=== PATIENT | male | born 1980 | race Caucasian/White ===

== ENCOUNTER 2016-08-20 20:32 | Emergency (ER) | payer OTHER ==
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
[2016-08-20 20:43] LABS: Glucose,Whole Blood 117 mg/dL (75-99)
[2016-08-20 20:55] LABS: Basophils % (A) 1 %; CH 32.2; CHCM 33.7; Eosinophils # (A) 0.2 k/uL (0-0.7); Eosinophils % (A) 2 %; HCT 35.5 % (39.0-53.0); HDW 2.27; HGB 11.8 gm/dL (13.0-17.5); Luc # (Auto) 0.24; Luc % (Auto) 3; Lymphocytes % (A) 41 %; MCH 31.8 pg (25.0-35.0); MCHC 33.1 g/dL (31.0-37.0); MCV 96.1 fL (80.0-100.0); Mean Platelet Volume 8.3; Monocytes # (A) 0.3 k/uL (0-1.0); Monocytes % (A) 5 %; Neutrophils # (A) 3.6 k/uL (1.3-7.7); Neutrophils % (A) 49 %; RDW 13.3 % (11.5-15.5); WBC 7.4 k/uL (3.8-10.6); WBC (Perox) 7.31
[2016-08-20] MEDS ORDERED: RX INFO: IV CONTRAST WAS GIVEN 1 EACH MISC MISCELLANE PRN (20:55)
[2016-08-20] MEDS ORDERED: HYDROmorphone 1 MG/ML 1 ML SYRINGE IVP STA ×2 (20:55→21:45)
[2016-08-20 20:59] LABS: INR 1.1 (<1.1)
[2016-08-20 21:01] LABS: ALT 40 U/L (21-72); AST 31 U/L (17-59); Alkaline Phosphatase 50 U/L (38-126); Amylase 34 U/L (30-110); Anion Gap 14 mmol/L; Blood Urea Nitrogen 14 mg/dL (9-20); Calcium 7.9 mg/dL (8.4-10.2); Carbon Dioxide 17 mmol/L (22-30); Chloride 109 mmol/L (98-107); Glucose 114 mg/dL (74-99); Non-African American GFR(MDRD) >60 (>60 ml/min/1.73 sqM); Potassium 3.3 mmol/L (3.5-5.1); Sodium 140 mmol/L (137-145); Total Bilirubin 0.6 mg/dL (0.2-1.3); Total Protein 6.3 g/dL (6.3-8.2)
--- NOTE | 2016-08-20 21:03 | XR ---
EXAMINATION TYPE: XR pelvis AP view DATE OF EXAM: 08/20/2016 CLINICAL HISTORY: Trauma with pain. TECHNIQUE: A single AP view of the pelvis is obtained. COMPARISON: None. FINDINGS: There is no acute fracture/dislocation evident in the pelvis. The hip and sacroiliac join ts appear symmetric and unremarkable. Sclerotic foci left proximal femur are presumed benign, probabl e bone islands. The overlying soft tissue appears unremarkable. IMPRESSION: There is no acute fracture or dislocation in the pelvis.
--- NOTE | 2016-08-20 21:05 | XR ---
EXAMINATION TYPE: XR knee limited RT DATE OF EXAM: 08/20/2016 CLINICAL HISTORY: Amputation injury with pain TECHNIQUE: Limited portable frontal view of the right knee is obtained. COMPARISON: None. FINDINGS: There is soft tissue punctate foreign body medially and laterally at level of right knee j oint extending but less prominent up to distal diaphyseal level. Subcutaneous air consistent with ope n injury is noted. There is acute comminuted open fracture deformity or amputation at the proximal me tadiaphysis of right tibia. Fibula appears completely amputated as is not visualized. Visualized port ion of distal femur is intact without fracture. Overlying belt or constricting bandage material dista l femoral level is noted. IMPRESSION: There is open fracture amputation defect at level of proximal tibial metadiaphysis with complete amputation or expulsion of the fibula. Soft tissue foreign body noted.
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
[2016-08-20 21:11] LABS: Alcohol 172 mg/dL
[2016-08-20 21:17] LABS: Creatine Kinase 229 U/L (55-170)
[2016-08-20 21:18] LABS: Partial Thromboplastin Time 19.4 sec (22.0-30.0)
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
[2016-08-20 21:30] LABS: Troponin I <0.012 ng/mL (0.000-0.034)
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
[2016-08-20] MEDS ORDERED: ONDANSETRON 4 MG/2 ML VIAL IVP STA ×2 (21:45)
[2016-08-20] MEDS ORDERED: ceFAZolin 1,000 MG in DEXTROSE/WATER 1 50ML.BAG IVPB STA (21:45)
[2016-08-20 22:19] VITALS: BP 86/59; PULSE 72; RESP 18; TEMP 97.8
[2016-08-20] MEDS ORDERED: SODIUM CHLORIDE 0.9% 1,000 ML IV ONE (22:22)
[2016-08-20] MEDS ORDERED: SODIUM CHLORIDE 0.9% 500 ML IV ONE (22:26)
== END 2016-08-20 21:58 | disposition short-term general hospital (02) ==
LOC: EC 20:32
DX: S88.011A Complete traumatic amputation at knee level, right lower leg, initial encounter (principal); F17.200 Nicotine dependence, unspecified, uncomplicated; V27.4XXA Motorcycle driver injured in collision with fixed or stationary object in traffic accident, initial encounter; Y92.410 Unspecified street and highway as the place of occurrence of the external cause
CPT/HCPCS: 99291; 96374; 96375 ×2; 96376; 36415; 86900; 86901; 80053; 82150; 82550; 82553; 83605; 83690; 84484; 85025; 85610; 85730; 86850; 86920; 80320; 71010; 72170; 73560; 72125; 70450; 71260; 74177; J2405; J1170; Q9967; J0690; 93005

== ENCOUNTER 2020-01-05 13:06 | Emergency (ER) | payer OTHER ==
[2020-01-05 13:13] VITALS: RESP 18
[2020-01-05] MEDS ORDERED: FLUORESCEIN STRIPS 1 MG STRIP RIGHT EYE ONE (13:21)
[2020-01-05] MEDS ORDERED: PROPARACAINE 0.5% OPHTH DROPS 15 ML BTL LEFT EYE STA (13:21)
[2020-01-05] MEDS ORDERED: PROPARACAINE 0.5% OPHTH DROPS 15 ML BTL ONE (13:22)
[2020-01-05] MEDS ORDERED: TOBRAMYCIN 0.3% OPHTH DROPS 5 ML BTL LEFT EYE STA (13:30)
--- NOTE | 2020-01-05 13:31 | ED ---
Eye Problem HPI - General Chief complaint: Eye Problems Stated complaint: Eye Injury Time Seen by Provider: 01/05/20 13:18 Source: patient, RN notes reviewed Mode of arrival: ambulatory Limitations: no limitations - History of Present Illness Initial comments: 39-year-old male presents emergency Department chief complaint of foreign body left eye. His tetanus is up-to-date. Patient states she is cutting some sheet metal or piece went towards his left eye. He states he can see unable to remove it. Patient denies any blurred vision no other complaints. - Related Data Previous Rx's Medication Instructions Recorded Cephalexin [Keflex] 500 mg PO Q12HR 10 Days cap 12/23/15 Ibuprofen [Motrin] 600 mg PO Q6HR PRN #30 day 12/23/15 Allergies Allergy/AdvReac Type Severity Reaction Status Date / Time No Known Allergies Allergy Verified 01/05/20 13:13 Review of Systems ROS Statement: Those systems with pertinent positive or pertinent negative responses have been documented in the HPI. ROS Other: All systems not noted in ROS Statement are negative. Past Medical History Past Medical History: Hypertension History of Any Multi-Drug Resistant Organisms: None Reported Past Surgical History: Orthopedic Surgery Additional Past Surgical History / Comment(s): leg amputation Past Psychological History: No Psychological Hx Reported Smoking Status: Current every day smoker Past Alcohol Use History: Occasional Past Drug Use History: None Reported General Exam Limitations: no limitations General appearance: alert, in no apparent distress Head exam: Present: atraumatic, normocephalic, normal inspection Eye exam: Present: PERRL, EOMI, conjunctival injection (Left), other (Fluorescein uptake noted in central cornea region were foreign bodies noted no other areas of uptake, patient complete relief of symptoms with proparacaine.). Absent: normal appearance (Foreign body noted in the central corneal region), scleral icterus, periorbital swelling ENT exam: Present: normal exam, mucous membranes moist Neck exam: Present: normal inspection. Absent: tenderness, meningismus, lymphadenopathy Respiratory exam: Present: normal lung sounds bilaterally. Absent: respiratory distress, wheezes, rales, rhonchi, stridor Course Vital Signs 01/05/20 13:10 Temperature 98.6 F Pulse Rate 86 Respiratory 18 Rate Blood Pressure 148/81 O2 Sat by Pulse 99 Oximetry Procedures - Forgein Body Removal Eye Site: Left Location in eye(s): Central cornea Anesthetic Used: Proparacaine Eye Exam Technique: Mix Lamp, Fluorescein Foreign Body Suspected: Metal Forgein Body Removal Technique: Cotton Swab Remaining Debris: No Patient Tolerated: no complications Medical Decision Making - Medical Decision Making Patient present for left eye foreign body. This was completely removed with no residual areas. Patient was discharged on Tobrex eyedrops will follow-up with ophthalmology tetanus is up-to-date. Disposition Clinical Impression: Foreign body of left eye Disposition: HOME SELF-CARE Condition: Stable Instructions (If sedation given, give patient instructions): Eye Foreign Body (ED) Additional Instructions: Please return to the Emergency Department if symptoms worsen or any other concerns. Use Tobrex eyedrops 1 drop to her left eye every 4 hours for 5 days. Is patient prescribed a controlled substance at d/c from ED?: No Referrals: Emiliano Vila Jr, DO [Primary Care Provider] - 1-2 days Vidya Haines MD [STAFF PHYSICIAN] - 1-2 days Time of Disposition: 13:31
[2020-01-05 14:16] VITALS: BP 145/79; PULSE 82; TEMP 98.1
== END 2020-01-05 14:15 | disposition home or self-care (01) ==
LOC: EC 13:06
DX: T15.02XA Foreign body in cornea, left eye, initial encounter (principal); F17.200 Nicotine dependence, unspecified, uncomplicated; X58.XXXA Exposure to other specified factors, initial encounter
CPT/HCPCS: 65220; 99283

== ENCOUNTER 2024-05-29 22:51 | Emergency (ER) | payer OTHER ==
[2024-05-29 23:06] VITALS: RESP 18
[2024-05-30] MEDS: FLUORESCEIN STRIPS 1 MG STRIP LEFT EYE ONE (00:19)
[2024-05-30] MEDS: PROPARACAINE 0.5% OPHTH DROPS 15 ML BTL LEFT EYE STA (00:19)
--- NOTE | 2024-05-30 00:53 | ED ---
Eye Problem HPI - General Chief complaint: Eye Problems Stated complaint: left eye pain Time Seen by Provider: 05/29/24 23:51 Source: patient Mode of arrival: ambulatory Limitations: no limitations - History of Present Illness Initial comments: 43-year-old male presenting with chief complaint of left eye discomfort. Patient reports that he has been doing work with metal recently and thinks that may be a piece of metal stuck in his eye. He admits to foreign body sensation. Also admits to watering of the eyes. He does not wear glasses or contact lens es. He is having some slight blurred vision. No visual loss. No purulent discharge from the eye. - Related Data Previous Rx's Medication Instructions Recorded Cephalexin [Keflex] 500 mg PO Q12HR 10 Days cap 12/23/15 Ibuprofen [Motrin] 600 mg PO Q6HR PRN #30 day 12/23/15 Allergies Allergy/AdvReac Type Severity Reaction Status Date / Time No Known Allergies Allergy Verified 05/29/24 23:06 Review of Systems ROS Statement: Those systems with pertinent positive or pertinent negative responses have been documented in the HPI. ROS Other: All systems not noted in ROS Statement are negative. Past Medical History Past Medical History: Hypertension History of Any Multi-Drug Resistant Organisms: None Reported Past Surgical History: Orthopedic Surgery Additional Past Surgical History / Comment(s): leg amputation Past Psychological History: No Psychological Hx Reported Smoking Status: Current every day smoker Past Alcohol Use History: Occasional Past Drug Use History: None Reported General Exam Limitations: no limitations General appearance: alert, in no apparent distress Head exam: Present: atraumatic, normocephalic, normal inspection Expanded Eyelids: Normal Inspection: Bilateral Pupils: Regular, Round: Bilateral, Reactive: Bilateral Sclera/Conjunctival: Foreign Body: Left (Possible metallic foreign body ) Visual acuity (R) = 20/: 13 Visual acuity (L) = 20/: 20 With correction: No Neck exam: Present: normal inspection. Absent: meningismus Respiratory exam: Absent: respiratory distress Cardiovascular Exam: Present: regular rate Neurological exam: Present: alert, oriented X3 Psychiatric exam: Present: normal affect, normal mood Skin exam: Present: warm, dry, normal color Course Vital Signs 05/29/24 05/30/24 23:03 01:42 Temperature 97.6 F 97.8 F Pulse Rate 91 71 Respiratory 18 18 Rate Blood Pressure 128/82 124/78 O2 Sat by Pulse 96 98 Oximetry Medical Decision Making - Medical Decision Making Was pt. sent in by a medical professional or institution ([facility], [facility] [facility], urgent care, hospital, or shelter...) When possible be specific @ -No Did you speak to anyone other than the patient for history (EMS, parent, family, police, friend...)? What history was obtained from this source @ -No Did you review nursing and triage notes (agree or disagree)? Why? @ -I reviewed and agree with nursing and triage notes Were old charts reviewed (outside hosp., previous admission, EMS record, old EKG, old radiological studies, urgent care reports/EKG's, shelter records)? Report findings @ -No old charts were reviewed Differential Diagnosis (chest pain, altered mental status, abdominal pain women, abdominal pain men, vaginal bleeding, weakness, fever, dyspnea, syncope, h eadache, dizziness, GI bleed, back pain, seizure, CVA, palpatations, mental health, musculoskeletal)? @ -Differential includes foreign body, corneal abrasion, corneal ulcer, conjunctivitis, not an all-inclusive list EKG interpreted by me (3pts min.). @ -As above X-rays interpreted by me (1pt min.). @ -None done CT interpreted by me (1pt min.). @ -None done U/S interpreted by me (1pt. min.). @ -None done What testing was considered but not performed or refused? (CT, X-rays, U/S, labs)? Why? @ -None What meds were considered but not given or refused? Why? @ -None Did you discuss the management of the patient with other professionals (professionals i.e. [facility] Rodriguez, [facility], lab, RT, psych nurse, medical social consultant, fish hatchery supervisor, teacher, chief analytics officer, onsite case manager)? Give summary @ -No Was smoking cessation discussed for >3mins.? @ -No Was critical care preformed (if so, how long)? @ -No Were there social determinants of health that impacted care today? How? (Homelessness, low income, unemployed, alcoholism, drug addiction, transportation, low edu. Level, literacy, decrease access to med. care, prison, rehab)? @ -No Was there de-escalation of care discussed even if they declined (Discuss DNR or withdrawal of care, Hospice)? DNR status @ -No What co-morbidities impacted this encounter? (DM, HTN, Smoking, COPD, CAD, Cancer, CVA, ARF, Chemo, Hep., AIDS, mental health diagnosis, sleep apnea, morbid obesity)? @ -None Was patient admitted / discharged? Hospital course, mention meds given and route, prescriptions, significant lab abnormalities, going to OR and other pertinent info. @ -43-year-old male presenting with chief complaint of left eye irritation. Thinks there may be a foreign body in his eye and thinks it may be metal as he has been doing recent work with metal. On fluorescein examination there is a small area of uptake seen. Unfortunately the slit-lamp is not available at this time. Attempted to remove the foreign body using an 18-gauge needle, believe that I remove the foreign body but there may be a remaining rust ring. Patient was started on erythromycin eye ointment and ketorolac eyedrops. He is instructed to follow-up with ophthalmology. Educated on today's findings and treatment plan. Follow-up with PCP. Report back to ER with any new or worsening symptoms. Discussed return parameters and answered all questions. Patient conveyed verbal understanding and agreed to the plan. I discussed this case in detail with my attending Dr. Chawla Undiagnosed new problem with uncertain prognosis? @ -No Drug Therapy requiring intensive monitoring for toxicity (Heparin, Nitro, Insulin, Cardizem)? @ -No Were any procedures done? @ -Fluorescein staining with Mix lamp examination Diagnosis/symptom? @ -Corneal abrasion, corneal foreign body Acute, or Chronic, or Acute on Chronic? @ -Acute Uncomplicated (without systemic symptoms) or Complicated (systemic symptoms)? @ -Uncomplicated Side effects of treatment? @ -No Exacerbation, Progression, or Severe Exacerbation? @ -No Poses a threat to life or bodily function? How? (Chest pain, [place], [place], pneumonia, PE, COPD, DKA, ARF, appy, cholecystitis, CVA, Diverticulitis, Homicidal, Suicidal, threat to staff... and all critical care pts) @ -Unlikely though there is potential if he does not follow-up with ophthalmology Disposition Clinical Impression: Corneal abrasion Disposition: HOME SELF-CARE Condition: Good Instructions (If sedation given, give patient instructions): Corneal Abrasion (ED), Eye Foreign Body (ED) Additional Instructions: Follow-up with ophthalmology. Report back to ER with any new or worsening symptoms. Apply erythromycin eye ointment to the affected eye 4 times daily for 5 days to prevent infection Apply ketorolac eyedrop to the affected eye 1 drop up to 3 times a day as needed for pain Is patient prescribed a controlled substance at d/c from ED?: No Referrals: Emiliano Vila Jr, DO [Primary Care Provider] - 1-2 days Vidya Haines MD [STAFF PHYSICIAN] - 1-2 days Time of Disposition: 00:53
[2024-05-30] MEDS: KETOROLAC 0.5% OPHTH DROPS 5 ML BTL LEFT EYE STA (01:39)
[2024-05-30] MEDS: ERYTHROMYCIN 5 MG/GM OPHTH OINT 1 GM TUBE LEFT EYE STA (01:39)
[2024-05-30 01:43] VITALS: BP 124/78; PULSE 71; TEMP 97.8
== END 2024-05-30 01:42 | disposition home or self-care (01) ==
LOC: EC 22:51
DX: S05.02XA Injury of conjunctiva and corneal abrasion without foreign body, left eye, initial encounter (principal); F17.200 Nicotine dependence, unspecified, uncomplicated; X18.XXXA Contact with other hot metals, initial encounter
CPT/HCPCS: 99283

== ENCOUNTER → 2024-06-06 | Outpatient (CLI) | payer OTHER ==
--- NOTE | 2024-06-06 10:24 | XR ---
EXAMINATION TYPE: XR lumbar spine 2 or 3V DATE OF EXAM: 06/06/2024 CLINICAL HISTORY: Lumbar pain TECHNIQUE: Three views of the lumbar spine are submitted. COMPARISON: Radiographs 08/20/2016, CT chest abdomen pelvis 08/20/2016 FINDINGS: There are 5 lumbar type vertebral bodies identified. The lumbar spine shows satisfactory alignment w ithout evidence of acute fracture or dislocation. Vertebral body heights are within normal limits. Disc space narrowing with anterior osteophytosis at L4-L5 and L5-S1. Facet arthropathy at L5-S1. The overlying soft tissue appears unremarkable. IMPRESSION: 1. No acute fracture or dislocation is seen in the lumbar spine. 2. Mild degenerative disc disease of the lower lumbar spine. [facility], , 06/06/2024 10:22 AM
--- NOTE | 2024-06-06 12:39 | XR ---
EXAMINATION TYPE: XR cervical spine comp DATE OF EXAM: 06/06/2024 12:16 PM INDICATION: Patient age:Male; 43 years old; Reason for study: M54.2 cervical pain; PHH, pain COMPARISON: CT brain C-spine 08/20/2016 TECHNIQUE: The cervical spine was imaged in 4 projections. Frontal, lateral, odontoid and bilateral o blique. FINDINGS: The osseous structures show normal alignment without evidence of an acute fracture. There is disc spa ce narrowing with anterior osteophytosis at C4-C5, C5-C6, and C6-C7. Pedicles are intact. Soft tissu es are within normal limits. The odontoid appears intact. IMPRESSION: 1. No fracture or dislocation. 2. Mild degenerative disc disease changes of the cervical spine. [facility], , 06/06/2024 12:36 PM
== END | disposition home or self-care (01) ==
LOC: RADXRMAIN 09:40
PROVIDERS: ATTEND Family Medicine
DX: M51.360 Other intervertebral disc degeneration, lumbar region with discogenic back pain only (principal); M50.321 Other cervical disc degeneration at C4-C5 level; M47.817 Spondylosis without myelopathy or radiculopathy, lumbosacral region
CPT/HCPCS: 72050; 72100